=== PATIENT | female | born 1965 | race Two or more races ===

== ENCOUNTER 2018-08-31 09:32 | Emergency (ER) | payer MEDICAID, MEDICARE ==
[~2018-08-31] VITALS: Ht 165.1 cm; Wt 85.0 kg
[2018-08-31] MEDS ORDERED: METF-414 PO (09:46)
[2018-08-31] MEDS ORDERED: LISI10TA5 PO (09:46)
[2018-08-31] MEDS ORDERED: SODIUM CHLORIDE 0.9% 1,000 ML IV ONE (10:18)
[2018-08-31] MEDS ORDERED: ONDANSETRON HCL 4MG/2ML INJ IV STA (10:18)
[2018-08-31 11:30] LABS: BASOPHILS % 1.2 % (0.0-2.0); HEMATOCRIT. 38.7 % (36.0-48.0); HEMOGLOBIN. 12.2 g/dL (12.0-16.0); LYMPHOCYTES % 38.7 % (20.0-50.0); MEAN CORPUSCULAR HEMOGLOBIN 22.6 pg (28.0-32.0); MEAN CORPUSCULAR VOLUME 71.7 fL (81.0-99.0); MONOCYTES % 7.6 % (2.0-8.0); NEUTROPHILS % 44.5 % (40.0-76.0); PLATELET 229 x1000/uL (130-400); RED BLOOD CELL COUNT 5.39 mill/uL (4.2-5.4); RED CELL DISTRIBUTION WIDTH 17.4 % (11.6-14.6)
[2018-08-31 11:38] LABS: CHLORIDE 110 mEq/L (98-107)
[2018-08-31 12:40] VITALS: BP 124/72
== END 2018-08-31 12:46 | disposition home or self-care (01) ==
LOC: ER 09:32
DX: R42 Dizziness and giddiness (principal); I10 Essential (primary) hypertension; E11.9 Type 2 diabetes mellitus without complications; E78.00 Pure hypercholesterolemia, unspecified; Z79.01 Long term (current) use of anticoagulants
CPT/HCPCS: 36415; 71045; 80053; 84484; 85025; 93005; 96361; 96374; 99284; J2405; J7030

== ENCOUNTER 2022-10-17 19:12 | Emergency (ER) | payer MEDICAID, MEDICARE ==
[~2022-10-17] VITALS: Ht 165.1 cm; Wt 82.0 kg
[~2022-10-17 19:12] MED LIST: LISI10TA26 PO; METF-414 PO
[2022-10-17 19:25] VITALS: TEMP 98.4; O2SAT 98
[2022-10-17 19:45] VITALS: BP 116/74; PULSE 89; RESP 18
[2022-10-17] MEDS ORDERED: LIDOCAINE 5% PATCH TOP SCH (19:45)
[2022-10-17] MEDS ORDERED: KETOROLAC 30MG/ML VIAL IM ONE (19:45)
[2022-10-17] MEDS ORDERED: KETOROLAC 30MG/ML VIAL IM NR (19:45)
[2022-10-17] MEDS ORDERED: CYCLOBENZAPRINE 10MG TABLET PO ONE (20:15)
[2022-10-17 20:29] LABS: BASOPHILS % 0.8 % (0.0-2.0); DIFFERENTIAL COMMENT 0; EOSINOPHILS % 7.3 % (0.0-5.0); HEMATOCRIT. 42.9 % (36.0-48.0); LYMPHOCYTES % 40.5 % (20.0-50.0); MEAN CORPUSCULAR HGB CONC 32.6 g/dL (31.0-37.0); MEAN CORPUSCULAR VOLUME 79.7 fL (81.0-99.0); MEAN PLATELET VOLUME 8.7 fl (7.4-10.4); MONOCYTES % 6.7 % (2.0-8.0); NEUTROPHILS % 44.7 % (40.0-76.0); PLATELET 230 x1000/uL (130-400); RED BLOOD CELL COUNT 5.38 mill/uL (4.2-5.4); RED CELL DISTRIBUTION WIDTH 14.8 % (11.6-14.6); WHITE BLOOD COUNT 6.1 x1000/uL (4.5-11.0)
[2022-10-17 20:44] LABS: CHLORIDE 111 mEq/L (98-107); INDEX HEMOLYSI 1 (1-3); INDEX ICTERIC 1 (1-4); INDEX LIPEMIC 1 (1-3); SODIUM 139 mEq/L (136-145)
[2022-10-17 20:51] LABS: ALANINE AMINOTRANSFERASE 38 IU/L (13-61); ALBUMIN 4.1 g/dL (3.4-5.0); ASPARTATE AMINOTRANSFERASE 17 IU/L (15-37); BILIRUBIN TOTAL 0.3 mg/dL (0.1-1.0); CARBON DIOXIDE 28 mEq/L (21-32); GLUCOSE 159 mg/dL (70-105); UREA NITROGEN BLOOD 12 mg/dL (7-21)
[2022-10-17] MEDS ORDERED: TOPUD MT ×2 (21:15→21:16)
[2022-10-17] MEDS ORDERED: LIDO700A15 TP ×2 (21:15→21:16)
[2022-10-17] MEDS ORDERED: CYCL5TAB MT ×2 (21:15→21:16)
== END 2022-10-17 21:44 | disposition home or self-care (01) ==
LOC: ER 19:12
DX: S29.012A Strain of muscle and tendon of back wall of thorax, initial encounter (principal); E78.00 Pure hypercholesterolemia, unspecified; I10 Essential (primary) hypertension; Z90.49 Acquired absence of other specified parts of digestive tract; Z98.890 Other specified postprocedural states; X58.XXXA Exposure to other specified factors, initial encounter; Y93.89 Activity, other specified; Y92.89 Other specified places as the place of occurrence of the external cause; Y99.8 Other external cause status
CPT/HCPCS: 80053; 81025; 85025; 36415; 71045; 96372; 99284; J1885; Z7610